=== PATIENT | female | born 1990 | race Asian ===

== ENCOUNTER 2017-06-22 03:55 | Inpatient (IN) | payer SELFPAY ==
[~2017-06-22] VITALS: Ht 162.6 cm; Wt 58.1 kg
[2017-06-22] MEDS ORDERED: OXYTOCIN 20 UNITS in LACTATED RINGERS 1,000 ML IV SCH (04:23)
[2017-06-22] MEDS: LACTATED RINGERS 1,000 ML IV SCH ×3 (04:24→08:40)
[2017-06-22] MEDS ORDERED: NALBUPHINE HYDROCHLORIDE 10 MG/ML VIAL IVP PRN (04:25)
[2017-06-22] MEDS ORDERED: METHYLERGONOVINE 0.2 MG/ML AMP IM PRN (04:25)
[2017-06-22] MEDS ORDERED: PROMETHAZINE 25 MG/ML VIAL IVP PRN (04:25)
[2017-06-22] MEDS ORDERED: CARBOPROST 250 MCG/ML AMP IM PRN (04:25)
[2017-06-22] MEDS ORDERED: OXYTOCIN 10 UNITS/ML VIAL IM SCH (04:25)
[2017-06-22] MEDS ORDERED: AMPICILLIN 2,000 MG in NACL 0.9% MINI-BAG PLUS 100 ML IV SCH (05:00)
[2017-06-22] MEDS ORDERED: LACTATED RINGERS 500 ML IV SCH (05:00)
[2017-06-22] MEDS ORDERED: PROMETHAZINE 25 MG/ML VIAL ONE (05:09)
[2017-06-22] MEDS ORDERED: NALBUPHINE HYDROCHLORIDE 10 MG/ML VIAL ONE (05:09)
[2017-06-22] MEDS ORDERED: AMPICILLIN 2,000 MG VIAL ONE (05:29)
[2017-06-22 05:35] LABS: BASOPHILS # (AUTO) 0.2 K/uL (0.00-0.22); BASOPHILS % (AUTO) 1.8 % (0.0-2.0); EOSINOPHILS % (AUTO) 0.4 % (0.0-4.0); HEMATOCRIT 34.8 % (36-48); HEMOGLOBIN 11.7 g/dL (12.0-16.0); LYMPHOCYTES # (AUTO) 1.7 K/uL (2.5-16.5); LYMPHOCYTES % (AUTO) 15.4 % (20.5-51.1); MEAN CORPUSCULAR HEMOGLOBIN 31 pg (27-31); MEAN CORPUSCULAR HGB CONC 34 g/dL (33-37); MEAN CORPUSCULAR VOLUME 93 fL (80-94); MONOCYTES # (AUTO) 0.7 K/uL (0.8-1.0); MONOCYTES % (AUTO) 6.2 % (1.7-9.3); NEUTROPHILS # (AUTO) 8.4 K/uL (1.8-7.7); NEUTROPHILS % (AUTO) 76.2 % (42.2-75.2); PLATELET COUNT (AUTO) 315 K/uL (140-450); RED BLOOD CELL COUNT(AUTO) 3.75 MIL/uL (4.20-5.40); RED CELL DISTRIBUTION WIDTH 13.5 % (11.6-13.7)
[2017-06-22 05:43] LABS: APPEARANCE,URINE HAZY (CLEAR); BILIRUBIN,URINE NEGATIVE (NEGATIVE); BLOOD, URINE 3+ (NEGATIVE); COLOR,URINE YELLOW (YELLOW); LEUKOCYTE ESTERASE ,URINE TRACE (NEGATIVE); NITRITE, URINE NEGATIVE (NEGATIVE); UGLUCOSE NEGATIVE (NEGATIVE)
[2017-06-22 05:58] LABS: RBC,URINE 20-50 /HPF (0-5); WBC,URINE 0-5 (RARE) /HPF (0-5)
[2017-06-22 06:29] LABS: ALBUMIN 2.8 g/dL (3.4-5.0); ANION GAP 13.7 (8-16); CARBON DIOXIDE 22.6 mmol/L (21-32); CREATININE 0.6 mg/dL (0.6-1.3); POTASSIUM 3.3 mmol/L (3.5-5.1); TOTAL BILIRUBIN 0.4 mg/dL (0.0-1.0)
--- NOTE | 2017-06-22 06:29 | NUR ---
PATIENT HAS BEEN SCREENED AND CATEGORIZED LOW NUTRITION RISK. PATIENT WILL BE SEEN WITHIN 7 DAYS OF ADMISSION. 06/28/17 SOTERO ARREOLA MS, RDN
[2017-06-22 06:39] VITALS: BP 120/75
[2017-06-22] MEDS ORDERED: INFLUENZA VIRUS VACCINE QUAD 0.5 ML SYR IMVAC SCH (06:40)
[2017-06-22] MEDS ORDERED: PNV1TABL8 PO (06:42)
[2017-06-22] MEDS ORDERED: ROPIVACAINE 0.2%/NS PREMIX 250 ML EPI ONE (07:18)
[2017-06-22] MEDS ORDERED: AMPICILLIN 1,000 MG in NACL 0.9% MINI-BAG PLUS 50 ML IV SCH (08:00)
[2017-06-22] MEDS ORDERED: AMPICILLIN 1,000 MG VIAL ONE (09:32)
[2017-06-22] MEDS ORDERED: OXYTOCIN 10 UNITS/ML VIAL ONE (12:29)
[2017-06-22] MEDS ORDERED: oxyCODONE/APAP 5/325 MG 1 TAB TAB PO PRN (14:45)
[2017-06-22] MEDS ORDERED: IBUPROFEN 800 MG TAB PO PRN (14:45)
[2017-06-22] MEDS ORDERED: BENZOCAINE/MENTHOL 20%-0.5% 60 GM CAN TP PRN (14:45)
[2017-06-22] MEDS ORDERED: TEMAZEPAM 15 MG CAP PO PRN (14:45)
[2017-06-22] MEDS ORDERED: oxyCODONE/APAP 5/325 MG 1 TAB TAB ONE (17:06)
[2017-06-23] MEDS: HYDROcodone/APAP 5/325 MG 1 TAB TAB PO PRN ×4 (00:35→18:51)
[2017-06-23 06:53] LABS: HEMATOCRIT 33.1 % (36-48); HEMOGLOBIN 10.9 g/dL (12.0-16.0)
[2017-06-23] MEDS ORDERED: DOCUSATE SOD/SENNA 50/8.6 MG 1 TAB PO SCH (21:00)
[2017-06-24] MEDS: HYDROcodone/APAP 5/325 MG 1 TAB TAB PO PRN (08:20)
[2017-06-24] MEDS ORDERED: INFLUENZA VIRUS VACCINE QUAD 0.5 ML SYR IMVAC SCH (08:30)
[2017-06-24] MEDS ORDERED: SODIUM PHOSPHATE 118 ML ENEM RC PRN (10:05)
[2017-06-24] MEDS ORDERED: IBUP-1842 PO (13:11)
== END 2017-06-24 15:30 | disposition home or self-care (01) | DRG 775 ==
LOC: MLD 03:55 → MFCC 20:10
PROVIDERS: ADMIT Obstetrics & Gynecology; ATTEND Obstetrics & Gynecology
PROC: 10E0XZZ Delivery of Products of Conception, External Approach (ICD-10-PCS; principal; 2017-06-22)
PROC: 0W8NXZZ Division of Female Perineum, External Approach (ICD-10-PCS; 2017-06-22)
PROC: 10907ZC Drainage of Amniotic Fluid, Therapeutic from Products of Conception, Via Natural or Artificial Opening (ICD-10-PCS; 2017-06-22)
PROC: 00HU33Z Insertion of Infusion Device into Spinal Canal, Percutaneous Approach (ICD-10-PCS; 2017-06-22)
PROC: 3E0R3BZ Introduction of Anesthetic Agent into Spinal Canal, Percutaneous Approach (ICD-10-PCS; 2017-06-22)
PROC: 3E0234Z Introduction of Serum, Toxoid and Vaccine into Muscle, Percutaneous Approach (ICD-10-PCS; 2017-06-23)
PROC: 3E0234Z Introduction of Serum, Toxoid and Vaccine into Muscle, Percutaneous Approach (ICD-10-PCS; 2017-06-23)
DX: O69.81X0 Labor and delivery complicated by cord around neck, without compression, not applicable or unspecified (principal); Z23 Encounter for immunization; Z37.0 Single live birth; Z3A.38 38 weeks gestation of pregnancy
CPT/HCPCS: 36415; 51702; 59409; 80053; 81001; 85018; 85025; 86592; 86762; 86886; 86900; 86901; 87340; 87653-90; 90658; 90715; C1758; J0290; J2300; J2550; J2590; J2795; J7120